=== PATIENT | male | born 1970 | race Caucasian/White ===

== ENCOUNTER 2017-04-14 10:29 | Emergency (ER) | payer MEDICAID ==
[~2017-04-14] VITALS: Ht 172.7 cm; Wt 83.9 kg
[2017-04-14 12:10] VITALS: BP 157/94
--- NOTE | 2017-04-14 12:12 | NUR ---
Patient ambulated to bed 08.
--- NOTE | 2017-04-14 12:15 | NUR ---
47 M BIB SELF FOR RECHECK OF SUTURES TO RIGHT HAND; SUTURES DRY AND INTACT; NO BLEEDING, DRAINAGE, OR REDNESS NOTEDDENIES N/V/D; SKIN IS PINK/WARM/DRY; AAOX4 WITH EVEN AND STEADY GAIT; LUNGS CLEAR BL; HR EVEN AND REGULAR; PT DENIES ANY FEVER, CP, SOB, OR COUGH AT THIS TIME; PATIENT STATES PAIN OF 0/10 AT THIS TIME; VSS; PATIENT POSITIONED FOR COMFORT; HOB ELEVATED; BEDRAILS UP X2; BED DOWN. ER MD MADE AWARE OF PT STATUS.
--- NOTE | 2017-04-14 13:04 | NUR ---
Patient discharged with v/s stable. Written and verbal after care instructions given and explained. Patient alert, oriented and verbalized understanding of instructions. Ambulatory with steady gait. All questions addressed prior to discharge. ID band removed. Patient advised to follow up with PMD. Rx of Bactrium given. Patient educated on indication of medication including possible reaction and side effects. Opportunity to ask questions provided and answered.
[2017-04-14 13:05] VITALS: BP 143/81
== END 2017-04-14 13:04 | disposition home or self-care (01) ==
LOC: MED 10:29
DX: S61.216D Laceration without foreign body of right little finger without damage to nail, subsequent encounter (principal); X58.XXXD Exposure to other specified factors, subsequent encounter; Y92.89 Other specified places as the place of occurrence of the external cause; Y99.8 Other external cause status
CPT/HCPCS: 99283

== ENCOUNTER 2017-04-17 09:19 | Emergency (ER) | payer MEDICAID ==
[~2017-04-17] VITALS: Ht 175.3 cm; Wt 84.1 kg
[2017-04-17 09:23] VITALS: BP 136/78
--- NOTE | 2017-04-17 09:27 | NUR ---
PATIENT TAKEN TO OF1 AT THIS TIME.
--- NOTE | 2017-04-17 09:30 | NUR ---
Patient being evaluated by DR SERVIN at bedside.
--- NOTE | 2017-04-17 09:40 | NUR ---
Patient discharged with v/s stable. Written and verbal after care instructions given and explained. Patient verbalized understanding. Ambulatory with steady gait. All questions addressed prior to discharge. Advised to follow up IN 5 DAYS FOR SUTURE REMOVAL.
[2017-04-17 09:43] VITALS: BP 136/78
== END 2017-04-17 09:40 | disposition home or self-care (01) ==
LOC: MED 09:19
DX: S61.411D Laceration without foreign body of right hand, subsequent encounter (principal); R03.0 Elevated blood-pressure reading, without diagnosis of hypertension; W45.8XXD Other foreign body or object entering through skin, subsequent encounter; Y92.89 Other specified places as the place of occurrence of the external cause; Y99.8 Other external cause status
CPT/HCPCS: 99281